=== PATIENT | male | born 1995 | race Caucasian/White ===

== ENCOUNTER 2016-08-29 18:28 | Emergency (ER) | payer OTHER ==
[~2016-08-29] VITALS: Ht 170.2 cm; Wt 91.6 kg
[2016-08-29 18:28] VITALS: BP 164/83
[~2016-08-29 18:28] MED LIST: FLUT9.9S NS
--- NOTE | 2016-08-29 18:31 | ED.ADGEN ---
Past History Past Medical History: No Pertinent History, Other Past Surgical History: No Surgical History, Other Alcohol Use: None Drug Use: None Adult General Chief Complaint Chief Complaint " . I got this cellulitis.. I was seen at [facility].. they said if it got worse go to the ED...." HPI HPI Patient is a 20 year old male who presents with above hx and complaints of Rt. facial cellulitis. Pt. has had this problem before with shaving. No adenopathy. No focal abscess. Has a 2 x 2 centimeters area of erythema and swelling on right lower chin. She is normally healthy. Patient up-to-date with vaccinations. Patient follows at [facility]. Patient currently on prednisone and antibiotic. Review of Systems Review of Systems Constitutional: Denies fever or chills [] Eyes: Denies change in visual acuity, redness, or eye pain [] HENT: Denies nasal congestion or sore throat [] Respiratory: Denies cough or shortness of breath [] Cardiovascular: No additional information not addressed in HPI [] GI: Denies abdominal pain, nausea, vomiting, bloody stools or diarrhea [] : Denies dysuria or hematuria [] Musculoskeletal: Denies back pain or joint pain [] Integument: Denies rash or skin lesions [] history of facial cellulitis Neurologic: Denies headache, focal weakness or sensory changes [] Endocrine: Denies polyuria or polydipsia [] Family History Family History Noncontributory Current Medications Current Medications Current Medications Medications (Trade) Dose Ordered Sig/April Start Time Stop Time Status Last Admin Dose Admin Ceftriaxone Sodium (Rocephin Im) 1 gm 1X ONCE 08/29/16 19:00 08/29/16 19:01 DC 08/29/16 18:58 1 GM Hydrocodone Bitartrate/ Ibuprofen (Vicoprofen 7.5-200) 2 tab 1X ONCE 08/29/16 19:00 08/29/16 19:01 DC 08/29/16 18:58 2 TAB Trimethoprim/ Sulfamethoxazole (Bactrim Ds) 1 tab 1X ONCE 08/29/16 19:00 08/29/16 19:01 DC 08/29/16 18:58 1 TAB Allergies Allergies Allergies Coded Allergies Type Severity Reaction Last Updated Verified No Known Drug Allergies 07/07/15 No Physical Exam Physical Exam Constitutional: Well developed, well nourished, mild distress, non-toxic appearance. [] HENT: Normocephalic, atraumatic, bilateral external ears normal, oropharynx moist, no oral exudates, nose normal. [] Right facial cellulitis as per history of present illness Eyes: PERRLA, EOMI, conjunctiva normal, no discharge. [] Neck: Normal range of motion, no tenderness, supple, no stridor. [] Cardiovascular:Heart rate regular rhythm, no murmur [] Lungs & Thorax: Bilateral breath sounds clear to auscultation [] Abdomen: Bowel sounds normal, soft, no tenderness, no masses, no pulsatile masses. [] Skin: Warm, dry, no erythema, no rash. [] Back: No tenderness, no CVA tenderness. [] Extremities: No tenderness, no cyanosis, no clubbing, ROM intact, no edema. [] Neurologic: Alert and oriented X 3, normal motor function, normal sensory function, no focal deficits noted. [] Psychologic: Affect normal, judgement normal, mood normal. [] Current Patient Data Vital Signs Vital Signs Date Time Temp Pulse Resp B/P Pulse Ox O2 Delivery O2 Flow Rate FiO2 08/29/16 19:00 79 20 153/76 99 Room Air 08/29/16 18:28 100.3 EKG EKG [] Radiology/Procedures Radiology/Procedures [] Course & Med Decision Making Course & Med Decision Making Pertinent Labs and Imaging studies reviewed. (See chart for details). Stop the prednisone. Massage area Polysporin 4 times a day. Take Bactrim DS twice a day with your other antibiotic.. Use moist heat packs. If very develops an abscess we will need be drained. Follow-up primary care. See if will give you a temporary way of shaving until about his clears. Take Tylenol and ibuprofen for pain for. For marked pain may take Vicoprofen up 4 times a day. Follow-up primary care. Return of any concerns. Continue the Clindamycin as directed. [] Final Impression Final Impression 1. Cellulitis [] Problems: Dragon Disclaimer Dragon Disclaimer This electronic medical record was generated, in whole or in part, using a voice recognition dictation system. SUMAN COLLINS MD Aug 29, 2016 18:31
[2016-08-29] MEDS ORDERED: SULF1TAB24 PO (18:50)
[2016-08-29] MEDS ORDERED: HYDR-79 PO (18:50)
[2016-08-29] MEDS ORDERED: CEFTRIAXONE IM 1 GM VIAL. IM ONE (19:00)
[2016-08-29] MEDS ORDERED: SMZ/TMP 800/160MG TABLET. PO ONE (19:00)
[2016-08-29] MEDS ORDERED: HYDROCODON/IBUPROFEN 7.5/200MG TABLET. PO ONE (19:00)
== END 2016-08-29 19:05 | disposition home or self-care (01) ==
LOC: ER 18:28
DX: L03.211 Cellulitis of face (principal)
CPT/HCPCS: 96372; 99283; J0696

== ENCOUNTER 2017-05-29 12:06 | Emergency (ER) | payer OTHER ==
[~2017-05-29] VITALS: Ht 170.2 cm; Wt 98.9 kg
[~2017-05-29 12:06] MED LIST changes: +HYDR-79 PO; +SULF1TAB24 PO
[2017-05-29 12:55] LABS: BASO # 0.1 x10^3/uL (0.0-0.2); BASO % 0 % (0-3); EOS # 0.1 x10^3/uL (0.0-0.7); EOS % 1 % (0-3); HEMATOCRIT 46.7 % (39.0-53.0); HEMOGLOBIN 15.9 g/dL (13.0-17.5); LYMPH # 0.5 x10^3/uL (1.0-4.8); LYMPH % 4 % (24-48); MEAN CORPUSCULAR HEMOGLOBIN 27 pg (25-35); MEAN CORPUSCULAR HGB CONC 34 g/dL (31-37); MEAN CORPUSCULAR VOLUME 80 fL (79-100); MONO # 0.7 x10^3/uL (0.0-1.1); MONO % 5 % (0-9); NEUT # 12.2 x10^3uL (1.8-7.7); NEUT % 90 % (31-73); PLATELET COUNT 302 x10^3/uL (140-400); RED BLOOD COUNT 5.84 x10^6/uL (4.30-5.70); RED CELL DISTRIBUTION WIDTH 13.9 % (11.5-14.5); WHITE BLOOD COUNT 13.6 x10^3/uL (4.0-11.0)
[2017-05-29] MEDS: IV NORMAL SALINE 1,000ML 1,000 ML IV SCH ×2 (12:56→13:28)
[2017-05-29] MEDS ORDERED: ONDANSETRON PF 4 MG/2 ML VIAL. IV ONE (13:00)
[2017-05-29 13:03] LABS: ALBUMIN 3.9 g/dL (3.4-5.0); ALBUMIN/GLOBULIN RATIO 0.9 (1.0-1.7); CALCIUM 8.9 mg/dL (8.5-10.1); CREATININE 0.9 mg/dL (0.7-1.3); GFR 105.5; POTASSIUM 4.2 mmol/L (3.5-5.1); TOTAL BILIRUBIN 0.5 mg/dL (0.2-1.0); TOTAL PROTEIN 8.3 g/dL (6.4-8.2)
[2017-05-29] MEDS ORDERED: IV NORMAL SALINE 1,000ML 1,000 ML IV ONE (13:15)
[2017-05-29 14:16] LABS: BILIRUBIN,URINE NEG (NEG); CLARITY,URINE CLEAR; COLOR,URINE YELLOW; GLUCOSE,URINE NEG (NEG); NITRITE,URINE NEG (NEG); UROBILINOGEN,URINE 0.2 mg/dL (0.2 mg/dL)
[2017-05-29 14:17] VITALS: BP 145/101
[2017-05-29] MEDS ORDERED: HYDR-971 PO (14:21)
[2017-05-29] MEDS ORDERED: ONDA4TAB10 PO (14:21)
--- NOTE | 2017-05-29 14:21 | PHYS DOC ---
Past History Past Medical History: No Pertinent History Past Surgical History: Other Smoking: Non-smoker Alcohol Use: None Drug Use: None Adult General Chief Complaint Chief Complaint: NAUSEA/VOMITING/DIARRHEA HPI HPI 21-year-old male patient complaining of generalized abdominal cramping pain since 8 AM and 2 episodes of vomiting and more than 10 episodes of nonbloody diarrhea and generalized weakness. Patient did not have sick contacted, fever and chills, urinary symptom. Review of Systems Review of Systems Constitutional: Denies fever or chills [] Eyes: Denies change in visual acuity, redness, or eye pain [] HENT: Denies nasal congestion or sore throat [] Respiratory: Denies cough or shortness of breath [] Cardiovascular: No additional information not addressed in HPI [] GI: Reports abdominal pain, nausea, vomiting, diarrhea [] : Denies dysuria or hematuria [] Musculoskeletal: Denies back pain or joint pain [] Integument: Denies rash or skin lesions [] Neurologic: Denies headache, focal weakness or sensory changes [] Endocrine: Denies polyuria or polydipsia [] All other systems were reviewed and found to be within normal limits, except as documented in this note. Current Medications Current Medications Current Medications Medications (Trade) Dose Ordered Sig/April Start Time Stop Time Status Last Admin Dose Admin Fentanyl Citrate (Fentanyl 2ml Vial) 50 mcg 1X ONCE 05/29/17 13:15 05/29/17 13:16 DC 05/29/17 13:27 50 MCG Ondansetron HCl (Zofran) 4 mg 1X ONCE 05/29/17 13:00 05/29/17 13:01 DC 05/29/17 12:56 4 MG Sodium Chloride 1,000 ml @ 1,000 mls/hr 1X ONCE 05/29/17 13:15 05/29/17 14:14 DC 05/29/17 12:56 1,000 MLS/HR Allergies Allergies Allergies Coded Allergies Type Severity Reaction Last Updated Verified No Known Drug Allergies 05/29/17 No Physical Exam Physical Exam Constitutional: Well developed, well nourished, mild distress, non-toxic appearance. [] HENT: Normocephalic, atraumatic, bilateral external ears normal, oropharynx moist, no oral exudates, nose normal. [] Eyes: PERRLA, EOMI, conjunctiva normal, no discharge. [] Neck: Normal range of motion, no tenderness, supple, no stridor. [] Cardiovascular:Heart rate regular rhythm, no murmur [] Lungs & Thorax: Bilateral breath sounds clear to auscultation [] Abdomen: Bowel sounds normal, soft, no tenderness, no masses, no pulsatile masses. [] Skin: Warm, dry, no erythema, no rash. [] Back: No tenderness, no CVA tenderness. [] Extremities: No tenderness, no cyanosis, no clubbing, ROM intact, no edema. [] Neurologic: Alert and oriented X 3, normal motor function, normal sensory function, no focal deficits noted. [] Psychologic: Affect normal, judgement normal, mood normal. [] Current Patient Data Vital Signs Vital Signs Date Time Temp Pulse Resp B/P (MAP) Pulse Ox O2 Delivery O2 Flow Rate FiO2 05/29/17 13:27 16 Room Air 05/29/17 12:56 72 140/80 (100) 100 05/29/17 12:14 97.9 Lab Results Laboratory Tests Test 05/29/17 12:30 White Blood Count 13.6 x10^3/uL (4.0-11.0) H Red Blood Count 5.84 x10^6/uL (4.30-5.70) H Hemoglobin 15.9 g/dL (13.0-17.5) Hematocrit 46.7 % (39.0-53.0) Mean Corpuscular Volume 80 fL (79-100) Mean Corpuscular Hemoglobin 27 pg (25-35) Mean Corpuscular Hemoglobin Concent 34 g/dL (31-37) Red Cell Distribution Width 13.9 % (11.5-14.5) Platelet Count 302 x10^3/uL (140-400) Neutrophils (%) (Auto) 90 % (31-73) H Lymphocytes (%) (Auto) 4 % (24-48) L Monocytes (%) (Auto) 5 % (0-9) Eosinophils (%) (Auto) 1 % (0-3) Basophils (%) (Auto) 0 % (0-3) Neutrophils # (Auto) 12.2 x10^3uL (1.8-7.7) H Lymphocytes # (Auto) 0.5 x10^3/uL (1.0-4.8) L Monocytes # (Auto) 0.7 x10^3/uL (0.0-1.1) Eosinophils # (Auto) 0.1 x10^3/uL (0.0-0.7) Basophils # (Auto) 0.1 x10^3/uL (0.0-0.2) Sodium Level 141 mmol/L (136-145) Potassium Level 4.2 mmol/L (3.5-5.1) Chloride Level 104 mmol/L (98-107) Carbon Dioxide Level 25 mmol/L (21-32) Anion Gap 12 (6-14) Blood Urea Nitrogen 19 mg/dL (8-26) Creatinine 0.9 mg/dL (0.7-1.3) Estimated GFR (Cockcroft-Gault) 105.5 BUN/Creatinine Ratio 21 (6-20) H Glucose Level 124 mg/dL (70-99) H Calcium Level 8.9 mg/dL (8.5-10.1) Total Bilirubin 0.5 mg/dL (0.2-1.0) Aspartate Amino Transferase (AST) 33 U/L (15-37) Alanine Aminotransferase (ALT) 77 U/L (16-63) H Alkaline Phosphatase 89 U/L (46-116) Total Protein 8.3 g/dL (6.4-8.2) H Albumin 3.9 g/dL (3.4-5.0) Albumin/Globulin Ratio 0.9 (1.0-1.7) L Lipase 93 U/L (73-393) EKG EKG [] Radiology/Procedures Radiology/Procedures [] Course & Med Decision Making Course & Med Decision Making Pertinent Labs studies reviewed. (See chart for details) Evaluation of patient in ER showed 21-year-old male patient presented with nausea and vomiting and abdominal pain. Patient had unremarkable physical exam. Labs showed mild dehydration and leukocytosis. Patient did not have do not tenderness and felt better with IV fluid and Zofran and pain medication. Patient tolerated oral intake. Plan discharge patient home with diagnosis of acute gastroenteritis [] Dragon Disclaimer Dragon Disclaimer This electronic medical record was generated, in whole or in part, using a voice recognition dictation system. Departure Departure: Impression: Primary Impression: Viral gastroenteritis Additional Impression: Dehydration Disposition: HOME, SELF-CARE (At 1419) Condition: IMPROVED Referrals: BRYCE HARRIS (PCP) Patient Instructions: Viral Gastroenteritis Additional Instructions: Take plenty of liquids Do not take solid food today Follow-up with your primary care physician for 2-3 days Scripts Hydrocodone Bit/Acetaminophen (NORCO 5-325 TABLET) 1 Each Tablet 1 TAB PO PRN Q6HRS Y for PAIN, #10 TAB 0 Refills Prov: NIVIA SINGLETARY MD 05/29/17 Ondansetron (ZOFRAN ODT) 4 Mg Tab.rapdis 4 MG PO TID Y for NAUSEA, #14 Prov: NIVIA SINGLETARY MD 05/29/17 Problem Qualifiers NIVIA SINGLETARY MD May 29, 2017 14:21
== END 2017-05-29 14:32 | disposition home or self-care (01) ==
LOC: ER 12:06
DX: A08.4 Viral intestinal infection, unspecified (principal); E86.0 Dehydration
CPT/HCPCS: 36415; 80053; 81003; 83690; 85025; 96361; 96374; 96375; 99284; J2405; J3010; J7030

== ENCOUNTER 2017-07-21 12:25 | Emergency (ER) | payer OTHER ==
[~2017-07-21] VITALS: Ht 170.2 cm; Wt 85.1 kg
[2017-07-21 12:25] VITALS: BP 144/77
[~2017-07-21 12:25] MED LIST changes: +HYDR-971 PO; +ONDA4TAB10 PO
--- NOTE | 2017-07-21 13:00 | PHYS DOC ---
General Chief Complaint: MECHANICAL FALL Stated Complaint: FALL Time Seen by MD: 12:26 Source: patient Exam Limitations: no limitations Problems: History of Present Illness Initial Comments Patient is a 21-year-old male who comes to the ED complaining of headache. Patient states he slipped on the ice yesterday hitting the back of his head on the concrete. He reports losing consciousness and being taken to [place] for evaluation. He states that CT of the head and cervical spine were negative and he was discharged home with Flexeril and Naprosyn. This morning he went to work and found it difficult to concentrate and he's had persistent headache, difficulty concentrating, and photophobia. He complains of back and neck muscle stiffness today, no midline or bony pain, and no new neurologic deficits. Headache is 5/10 throbbing/global, worse with loud noises and activity improved somewhat with rest. No fever/chills, n/v, no ear/nose discharge, and headache no worse than after the incident. Patient went to work this morning after not sleeping well last night and has come because he doesn't feel well and can't understand why he still has symptoms from a fall that occurred yesterday. Denies receiving any education regarding concussion/activity restriction. VSS. Timing/Duration: 24 hours Severity: moderate Modifying Factors: improves with medication, worse with movement, improves with rest Associated Symptoms: headaches, loss of appetite, malaise, other Allergies: Coded Allergies: No Known Drug Allergies (Unverified , 05/29/17) Past Medical History Medical History: no pertinent history Surgical History: noncontributory Social History Smoker: non-smoker Alcohol: none Drugs: none Review of Systems Constitutional: see HPI EENTM: see HPI, denies eye pain, denies blurred vision, denies ear discharge, denies nose congestion, denies throat pain, denies mouth pain Respiratory: denies cough, denies shortness of breath Cardiovascular: denies chest pain, denies palpitations Gastrointestinal: denies abdominal pain, denies nausea, denies vomiting Genitourinary: denies dysuria, denies frequency, denies hematuria Musculoskeletal: see HPI Psychiatric/Neurological: see HPI Physical Exam General Appearance: WD/WN, no apparent distress Eyes: bilateral eye normal inspection, bilateral eye PERRL, bilateral eye EOMI , bilateral eye photophobia Ear, Nose, Throat: other (Small scabbed occipital scalp abrasion noted with soft tissue tenderness no swelling/palpable bony abnormality. 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 I discussed signs and symptoms to monitor as well as indications for urgent return to the department. I discussed departure instructions face to face and his questions were answered to his satisfaction and he expressed agreement and understanding with the treatment plan. Departure Time of Disposition: 12:57 Disposition: HOME, SELF-CARE Diagnosis: concussion, muscle strain Condition: STABLE Patient Instructions: Concussion and Brain Injury, [id number], Muscle Strain , [id number] Additional Instructions: Please review the patient education materials given by ED staff. Off work, no strenuous activity or PT until cleared by doctor. Remain in a cool temperature dimly lit environment for optimal symptom control. Aggressive hydration with Gatorade or water. [id number] Tylenol as needed for discomfort recommend discontinuing Naprosyn. Follow-up with your doctor on Thursday for recheck and further activity restriction modifications as necessary. Return to ED with new or changing symptoms. GEOFFREY DOMÍNGUEZ DO Jul 21, 2017 12:59
== END 2017-07-21 13:05 | disposition home or self-care (01) ==
LOC: ER 12:25
DX: S06.0X0A Concussion without loss of consciousness, initial encounter (principal); S16.1XXA Strain of muscle, fascia and tendon at neck level, initial encounter; S00.01XA Abrasion of scalp, initial encounter; W00.0XXA Fall on same level due to ice and snow, initial encounter; Y93.89 Activity, other specified; Y99.8 Other external cause status; Y92.89 Other specified places as the place of occurrence of the external cause
CPT/HCPCS: 99281